=== PATIENT | male | born 1990 | race Caucasian/White ===

== ENCOUNTER 2017-09-29 21:56 | Emergency (ER) | payer OTHER ==
[~2017-09-29] VITALS: Ht 177.8 cm; Wt 61.2 kg
[~2017-09-29 21:56] MED LIST: CLIN15SU PT; CODACEE120 PT; DILAUDID1 MG/1 ML PT; DOC100SO PT; DOCU100 PO; HYDMOR2 PO; LORA2 PO; METO10SY PT; METO5A PO; Milk Of Ma400 MG/5 M PT; OMEP20ER PO; OXYC5 PO; Omeprazole20 M1; Q PAP PT; SUCR1SU PT; Vibramycin100 MG PO; [UNRECOGNIZED DRUG - OTHER] MC
[2017-09-29 23:17] LABS: Influenza A Negative (NEGATIVE); Influenza B Negative (NEGATIVE)
== END 2017-09-30 00:11 | disposition home or self-care (01) ==
LOC: ER 21:56
PROVIDERS: Emergency Medicine
DX: J20.9 Acute bronchitis, unspecified (principal); Z88.0 Allergy status to penicillin; Z88.1 Allergy status to other antibiotic agents; Z88.6 Allergy status to analgesic agent; Z87.891 Personal history of nicotine dependence
CPT/HCPCS: 71046; 87804; 99283